=== PATIENT | female | born 1960 | race Hispanic/Latino ===

== ENCOUNTER 2023-10-05 08:58 | Day surgery (SDC) | payer OTHER ==
[2023-10-04 12:23] LABS: BASOPHILS # (AUTO) 0.06 K/uL (0.00-0.20); BASOPHILS % (AUTO) 0.9 % (0.0-5.0); EOSINOPHILS # (AUTO) 0.08 K/uL (0.00-0.70); EOSINOPHILS % (AUTO) 1.2 % (0.0-8.0); HEMATOCRIT 41.8 % (36-48); IMMATURE GRANULOCYTE ABSOLUTE 0.02 K/uL (0-1); LYMPHOCYTES # (AUTO) 1.4 K/uL (1.0-4.8); LYMPHOCYTES % (AUTO) 20.9 % (21.0-51.0); MEAN CORPUSCULAR HEMOGLOBIN 29.9 pg (27.0-33.0); MEAN CORPUSCULAR HGB CONC 35.6 g/dL (32.0-36.0); MEAN CORPUSCULAR VOLUME 83.8 fL (79-99); MONOCYTES # (AUTO) 0.4 K/uL (0.1-1.0); MONOCYTES % (AUTO) 6.4 % (3.0-13.0); NEUTROPHILS # (AUTO) 4.6 K/uL (1.8-7.7); NEUTROPHILS % (AUTO) 70.3 % (40.0-77.0); PLATELET COUNT (AUTO) 324 K/uL (130-400); RED BLOOD CELL COUNT(AUTO) 4.99 MIL/uL (4.00-5.50); RED CELL DISTRIBUTION WIDTH 13.2 % (11.0-15.5); WHITE BLOOD COUNT (AUTO) 6.5 K/uL (4.8-10.8)
[2023-10-04 12:35] LABS: INR <= 0.93 (0.85-1.15); PROTHROMBIN TIME 10.2 SEC (9.6-11.6)
[2023-10-04 12:36] LABS: PARTIAL THROMBOPLASTIN TIME 27.8 SEC (26.3-35.5)
[2023-10-04 12:38] VITALS: BP 109/62; PULSE 67; RESP 16
[2023-10-04 12:39] LABS: CREATININE 0.6 mg/dL (0.5-1.0); POTASSIUM 4.1 mmol/L (3.5-5.1)
[2023-10-04 12:45] LABS: B-TYPE NATRIURETIC PEPTIDE 61 pg/mL (0-100)
[2023-10-04 13:11] LABS: APPEARANCE,URINE CLEAR (CLEAR); BILIRUBIN,URINE NEGATIVE (NEGATIVE); COLOR,URINE LIGHT-YELLOW (YELLOW); GLUCOSE, URINE (UA) >=1000 mg/dL (NEGATIVE); KETONES,URINE NEGATIVE (NEGATIVE); LEUKOCYTE ESTERASE ,URINE 250 Leu/uL (NEGATIVE); NITRATE,URINE NEGATIVE (NEGATIVE); OCCULT BLOOD,URINE NEGATIVE (NEGATIVE); PROTEIN,URINE NEGATIVE (NEGATIVE); UROBILINOGEN,URINE 0.2 mg/dL (0.2-1.0)
[2023-10-04 13:16] LABS: ADD UA MICROSCOPIC YES
[2023-10-04 13:21] LABS: BACTERIA,URINE RARE /HPF (None Seen); MUCUS,URINE RARE LPF (None Seen); SQUAMOUS EPITHELIAL CELL,UR RARE /HPF (0-2)
[~2023-10-05] VITALS: Ht 152.4 cm; Wt 54.6 kg
[2023-10-05] VITALS (8 sets, daily range): BP systolic 106–154; BP diastolic 58–74; PULSE 57–75; RESP 14–18
[~2023-10-05 08:58] MED LIST: AEC81 PO; ATOR40TA69 PO; CLOP75TA32 PO; DOCU100C33 PO; EMPA25TA PO; ESCI-8 PO; FAMO20TA8 PO; FENO48TA10 PO; FEXO-263 PO; ISOS30TA92 PO; LISI2.5T13 PO; METO-409 PO; NITR0.4T50 SL; SEMA2PEN SQ
[2023-10-05] MEDS ORDERED: 0.9%NACL 1000ML 1,000 ML IV ONE (10:36)
[2023-10-05] MEDS ORDERED: LIDOCAINE HCL 400MG/20ML VIAL ONE (10:44)
[2023-10-05] MEDS ORDERED: FENTANYL CITRATE PF 50 MCG/1 ML 2ML VIAL ONE ×2 (10:44→12:57)
[2023-10-05] MEDS ORDERED: NITROGLYCERIN 50MG VIAL ONE (10:45)
[2023-10-05] MEDS ORDERED: IODIXANOL 320 MG/ML 100 ML VIAL ONE ×2 (10:45→11:44)
[2023-10-05] MEDS ORDERED: MIDAZOLAM HCL 1 MG/ML 2ML VIAL ONE ×2 (10:45→13:00)
[2023-10-05] MEDS ORDERED: HEPARIN 10,000 UNIT/10ML (1,000 UNIT/ML) VIAL ONE (12:12)
[2023-10-05] MEDS ORDERED: 0.9%NACL 1000ML 1,000 ML IV SCH (13:30)
[2023-10-05] MEDS ORDERED: PHARMACY COMMUNICATION MISC SCH (13:30)
[2023-10-05] MEDS: ACETAMINOPHEN WITH CODEINE 1 TAB TAB PO PRN (15:15)
== END 2023-10-05 17:20 | disposition home or self-care (01) ==
LOC: DAH 08:58
PROVIDERS: ATTEND Internal Medicine Cardiovascular Disease
DX: I77.1 Stricture of artery (principal); I95.9 Hypotension, unspecified; F41.9 Anxiety disorder, unspecified; F32.A Depression, unspecified; E11.9 Type 2 diabetes mellitus without complications; I10 Essential (primary) hypertension; E78.5 Hyperlipidemia, unspecified; Z88.2 Allergy status to sulfonamides; Z82.49 Family history of ischemic heart disease and other diseases of the circulatory system; Z83.3 Family history of diabetes mellitus; Z87.891 Personal history of nicotine dependence; Z79.82 Long term (current) use of aspirin; Z79.84 Long term (current) use of oral hypoglycemic drugs; Z79.899 Other long term (current) drug therapy
CPT/HCPCS: 80048; 83880; 85025; 85610; 85730; 87088; 81001; 36415; 71045; 93005 ×2; 37236; 36215; 75710; 37252; 82948 ×2; C1894 ×5; C1769 ×2; C1893; C1760; C1753; C1725 ×2; C1876; J3010 ×2; J3490; J7030; J1644 ×2; J2250 ×2; Q9967 ×2; A4215; A4222; A4221; A4663; A4216; A4606; A4223 ×3; 99156; 99157

== ENCOUNTER 2023-11-08 15:55 | Emergency (ER) | payer OTHER ==
[~2023-11-08] VITALS: Ht 152.4 cm; Wt 51.7 kg
[2023-11-08 16:25] LABS: BASOPHILS # (AUTO) 0.04 K/uL (0.00-0.20); BASOPHILS % (AUTO) 0.5 % (0.0-5.0); EOSINOPHILS # (AUTO) 0.09 K/uL (0.00-0.70); EOSINOPHILS % (AUTO) 1.1 % (0.0-8.0); HEMATOCRIT 43.6 % (36-48); IMMATURE GRANULOCYTE ABSOLUTE 0.03 K/uL (0-1); LYMPHOCYTES # (AUTO) 1.6 K/uL (1.0-4.8); LYMPHOCYTES % (AUTO) 19.7 % (21.0-51.0); MEAN CORPUSCULAR HEMOGLOBIN 30.7 pg (27.0-33.0); MEAN CORPUSCULAR HGB CONC 34.4 g/dL (32.0-36.0); MEAN CORPUSCULAR VOLUME 89.3 fL (79-99); MONOCYTES # (AUTO) 0.5 K/uL (0.1-1.0); MONOCYTES % (AUTO) 6.6 % (3.0-13.0); NEUTROPHILS # (AUTO) 5.9 K/uL (1.8-7.7); NEUTROPHILS % (AUTO) 71.7 % (40.0-77.0); PLATELET COUNT (AUTO) 289 K/uL (130-400); RED BLOOD CELL COUNT(AUTO) 4.88 MIL/uL (4.00-5.50); RED CELL DISTRIBUTION WIDTH 13.3 % (11.0-15.5); WHITE BLOOD COUNT (AUTO) 8.2 K/uL (4.8-10.8)
[2023-11-08 16:26] VITALS: O2SAT 98
[2023-11-08 16:33] VITALS: BP 140/74; PULSE 72; RESP 16
[2023-11-08 16:33] LABS: CREATININE 0.7 mg/dL (0.5-1.0); POTASSIUM 3.6 mmol/L (3.5-5.1)
[2023-11-08] MEDS ORDERED: CLIN-141 PO (17:12)
== END 2023-11-08 17:58 | disposition home or self-care (01) ==
LOC: EDH 15:55
DX: N76.0 Acute vaginitis (principal); E11.9 Type 2 diabetes mellitus without complications; E78.00 Pure hypercholesterolemia, unspecified; Z79.02 Long term (current) use of antithrombotics/antiplatelets; Z79.82 Long term (current) use of aspirin; Z79.84 Long term (current) use of oral hypoglycemic drugs; Z79.899 Other long term (current) drug therapy; Z88.2 Allergy status to sulfonamides; Z90.49 Acquired absence of other specified parts of digestive tract; Z90.710 Acquired absence of both cervix and uterus; Z95.1 Presence of aortocoronary bypass graft
CPT/HCPCS: 36415; 56405; 80048; 85025

== ENCOUNTER → 2024-04-13 | Outpatient (CLI) | payer OTHER ==
[~2024-04-13] MED LIST changes: +CLIN-141 PO
[2024-04-13 10:50] LABS: ALBUMIN 3.8 g/dL (3.5-5.0); BILIRUBIN,TOTAL 0.3 mg/dL (0.2-1.0); CREATININE 0.5 mg/dL (0.5-1.0); POTASSIUM 4.1 mmol/L (3.5-5.1)
== END | disposition home or self-care (01) ==
LOC: LAB 09:38
PROVIDERS: ATTEND Student in an Organized Health Care Education/Training Program
DX: I25.10 Atherosclerotic heart disease of native coronary artery without angina pectoris (principal); R06.09 Other forms of dyspnea; Z95.1 Presence of aortocoronary bypass graft
CPT/HCPCS: 36415; 80053

== ENCOUNTER → 2024-04-18 | Outpatient (CLI) | payer OTHER ==
[~2024-04-18] MED LIST changes: +IOHEXOL 350 MG/ML 100ML INFUS..BTL IV ONE
--- NOTE | 2024-04-18 14:50 | HMCIMG ---
CT CARDIAC ANGIO W/CONT. CCTA HISTORY: Dyspnea COMPARISON: None TECHNIQUE: Multiple sequential axial images of the chest were obtained along with the CT angiogram of the chest study. Patient was given 100 cc of Omnipaque through intravenous route. FINDINGS: There is no evidence of pulmonary nodule or parenchymal disease. No pleural effusion or pericardial effusion is seen. There is no evidence of pneumothorax. There are normal size mediastinal and hilar lymph nodes. The heart is not enlarged. Degenerative changes of the thoracolumbar spine are present. IMPRESSION: 1. No evidence of pulmonary nodule or effusion is seen. Please see CT angiogram report of coronary arteries.
--- NOTE | 2024-04-25 08:42 | CARDIOLOGY ---
RAD REPORT: [facility] CT ANGIO RADIOLOGY REPORT: CORONARY CT ANGIOGRAPHY DATE: Apr 25, 2024 QUALITY: Excellent CLINICAL HISTORY AND INDICATION: [ Coronary artery bypass graft patency ] TECHNIQUE: After obtaining a preliminary recreation superintendent image, contrast imaging performed on an [employer] [id number] scanner. A dedicated, limited window, coronary imaging protocol was used, with single breath-hold, retrospective ECG gating, and automated arrhythmia rejection. 100 cc of low osmolar contrast agent: Omnipaque 350 was delivered via a 18-gauge IV catheter in the right antecubital fossa, using a power injector and followed by 60 cc of normal saline bolus as a chaser. Collimated images were reformatted at 0.5 mm intervals, and sent to an offline independent workstation for interpretation, using 3D anatomic reconstructions: Curved multiplanar reconstructions, maximum intensity projections, and multiplan ar imaging. No metoprolol was administered prior to scanning due to low baseline heart rate. 0.8 mg SL nitroglycerin was given. CORONARY ARTERY DESCRIPTIONS: The coronary arteries arise in normal position. Left main coronary artery: Normal caliber vessel that trifurcates into the LAD, ramus and LCx. 50-60% distal left main stenosis. Ramus: Medium caliber. NURSE EMERGENCY proximal ramus. Left anterior descending coronary artery: Normal caliber vessel and gives rise to diagonal and septal branches. Severe proximal LAD stenosis. KADEEM in the LAD just distal to the KRUGER to LAD anastomosis site. Left circumflex coronary artery: Normal caliber, nondominant and gives rise to two OM branches. 80-90% proximal OM1. Right coronary artery: Large, dominant vessel giving rise to the PL and PDA branches. CORONARY ARTERY BYPASS GRAFT DESCRIPTIONS: Patent KRUGER to LAD. Patent SVG to OM. Patent SVG to R PDA. There is a patent drug eluting stent in the mid SVG. Occluded SVG to ramus. No changes since last cardiac catheterization. Yanira Zamarripa MD Cardiovascular Disease [facility] YANIRA ZAMARRIPA MD Apr 25, 2024 08:42
== END | disposition home or self-care (01) ==
LOC: RAH 10:41
PROVIDERS: ATTEND Student in an Organized Health Care Education/Training Program
DX: I25.10 Atherosclerotic heart disease of native coronary artery without angina pectoris (principal); R06.09 Other forms of dyspnea; M47.815 Spondylosis without myelopathy or radiculopathy, thoracolumbar region; Z95.1 Presence of aortocoronary bypass graft
CPT/HCPCS: 75574; Q9967

== ENCOUNTER 2025-03-22 06:26 | Day surgery (SDC) | payer OTHER ==
[2025-03-20 10:41] LABS: IMMATURE GRANULOCYTE ABSOLUTE 0.02 K/uL (0-1); NUCLEATED RED BLOOD CELLS 0.0 % (0.0-0.19); PLATELET COUNT (AUTO) 276 K/uL (130-400); RED BLOOD CELL COUNT(AUTO) 5.24 MIL/uL (4.00-5.50); RED CELL DISTRIBUTION WIDTH 12.6 % (11.0-15.5); WHITE BLOOD COUNT (AUTO) 7.0 K/uL (4.8-10.8)
[2025-03-20 10:53] VITALS: BP 162/81; PULSE 63; RESP 18; TEMP 97.2
[2025-03-20 10:55] LABS: INR <= 0.93 (0.85-1.15)
[2025-03-20 11:05] LABS: CREATININE 0.5 mg/dL (0.5-1.0); GLOMERULAR FILTR. RATE CALC 103.0 mL/min (>90); GLUCOSE,RANDOM 96.0 mg/dL (70-105); SODIUM SERUM 142.0 mmol/L (136-145); UREA NITROGEN, BLOOD 8.0 mg/dL (7-18)
[2025-03-22] VITALS (13 sets, daily range): BP systolic 111–131; BP diastolic 46–69; PULSE 63–72; RESP 15–18; TEMP 97.1–97.7
[~2025-03-22] VITALS: Ht 152.4 cm; Wt 54.1 kg
[~2025-03-22 06:26] MED LIST changes: +ATOR-2 PO; -ATOR40TA69 PO; -CLIN-141 PO; -DOCU100C33 PO; +DOCUSATE PO; -FAMO20TA8 PO; +FENO145T26 PO; -FENO48TA10 PO; -FEXO-263 PO; -IOHEXOL 350 MG/ML 100ML INFUS..BTL IV ONE; +LACT1CAP90 PO; +METO-408 PO; +OMEP20CA12 PO; +SENNA PO
[2025-03-22] MEDS ORDERED: 0.9%NACL 1000ML 1,000 ML IV ONE (07:11)
[2025-03-22] MEDS ORDERED: LIDOCAINE PF 100MG/5ML (2%) SYRINGE 5ML ONE (07:32)
[2025-03-22] MEDS ORDERED: MIDAZOLAM HCL 1 MG/ML 2ML VIAL ONE (07:33)
[2025-03-22] MEDS ORDERED: NEOSTIGMINE METHYLSULFATE 1MG/ML IV ONE (09:39)
[2025-03-22] MEDS ORDERED: GLYCOPYRROLATE 0.2 MG/ML 5 ML VIAL ONE (09:39)
[2025-03-22] MEDS ORDERED: ACET-2079 PO (11:02)
--- NOTE | 2025-03-22 13:33 | OP ---
Operative Note: DATE OF PROCEDURE: 03/22/25 SURGEON: LEONEL GORDON MD CHILI PEPPER GRINDER: Holly Pichardo ANESTHESIA: General ANESTHESIOLOGIST/BLOW PIT OPERATOR: David aYp PREOPERATIVE DIAGNOSIS: Left carpal tunnel syndrome and left cubital tunnel syndrome POSTOPERATIVE DIAGNOSIS: Left carpal tunnel syndrome and left cubital tunnel syndrome PROCEDURE: Left carpal tunnel release and left ulnar nerve transposition ESTIMATED BLOOD LOSS: 0 cc INDICATIONS: 64-year-old female with a left carpal tunnel syndrome and left cubital tunnel syndrome with supporting evidence on EMG/NCS. Patient was failing conservative management. After discussion of the risks and benefits, and alternatives, the patient voluntarily agreed to undergo the aforementioned procedure. DESCRIPTION OF PROCEDURE: Patient was properly identified in the preoperative holding area. Surgical site marking was verified and surgery consent reviewed. The patient was then taken to the operating room and placed in supine position on the OR table. After induction of general anesthesia, preoperative antibiotics were given, all bony prominences were well-padded, and a well padded tourniquet was applied but not inflated at this time. The left upper extremity was then prepped and draped in usual sterile fashion. Surgical timeout was done verifying correct surgery, side, site, and location to be performed. We then began the procedure by exsanguinating the arm using an Esmarch and inflating a tourniquet to 250 mmHg. We made an approximately 2 cm long incision at the ulnar border of the fourth digit, when flexed, on the midpalmar longitudinal crease. Here we came down sharply through the subcutaneous tissue and using a self retaining retractor as well as ragnelles we could visualize the deep tissue. We then identified the transverse carpal ligament and began to come through this a little bit at a time using a 15 blade with small amounts of pressure being applied. The ligament was then released. We directed our attention proximally where we spread above and below the remaining portion of the transverse carpal ligament to break up any adhesions and using a pair of Metzenbaum scissors we slid proximally and transected and the remaining proximal portion of the transverse carpal ligament. Distally, we placed our retractors to help a show the distal extent of the transverse carpal ligament, and we came through this carefully using a 15 blade until we identified the fat surrounding the palmar arch. We used a [place] elevator palpating both the proximal and distal directions to ensure the entire transverse carpal ligament had been released. We then thoroughly irrigated out this wound with normal saline and injected the surrounding tissue with half percent Marcaine plain. We then focused our attention on the cubital tunnel marking out a bony landmarks and drawing out our incision. We then used a 15 blade to make an approximately 6 cm long incision. Here we dissected carefully through the subcutaneous tissue. Proximally we were able to identify the ulnar nerve and follow this as it traveled through the cubital tunnel. Using our 15 blade we released the tissue overlying the ulnar nerve and cubital tunnel. We then proceeded proximally and distally releasing tight structures overlying the nerve. We then tested for any remaining tight areas using a freer elevator. The elbow was then taken through a range of motion where we noted the ulnar nerve beginning to subluxate out of the cubital tunnel. We then elected to transpose the ulnar nerve. Using a 15 blade we elevated a fascial sling from the flexor pronator mass. The ulnar nerve was freed up from the remaining soft tissue deep to it. A Coello drain was passed around the ulnar nerve to carefully manipulate it. We then checked proximally and distally for appropriate release of soft tissue to prevent any pressure on the nerve in its transposed location. We freed any remaining tight tissue. We then used a 2-0 Vicryl to repair the sling loosely around the ulnar nerves holding it out of the cubital tunnel in an anteriorly transposed position. At this point we thoroughly irrigated out the wounds with normal saline and injected the surrounding tissues with half percent Marcaine plain. We then began to repair the tissue here using our 2-0 Vicryl in the subcutaneous tissue and 3-0 subcuticular Monocryl for the skin. Dermabond was applied over this wound at the elbow. Sterile dressing was then applied at the elbow. The hand wound was then closed with 3-0 nylon interrupted simple suture pattern. Soft sterile dressing was applied with Xeroform, 4 x 4's, and Coban. The tourniquet was then deflated. The patient was awakened from anesthesia. There were taken to the recovery room in stable condition. LEONEL GORDON MD Mar 22, 2025 13:33
== END 2025-03-22 12:03 | disposition home or self-care (01) ==
LOC: DAH 06:26
PROVIDERS: ATTEND Student in an Organized Health Care Education/Training Program
DX: G56.03 Carpal tunnel syndrome, bilateral upper limbs (principal); G56.23 Lesion of ulnar nerve, bilateral upper limbs; I10 Essential (primary) hypertension; E11.9 Type 2 diabetes mellitus without complications; E78.5 Hyperlipidemia, unspecified; K21.9 Gastro-esophageal reflux disease without esophagitis; M19.90 Unspecified osteoarthritis, unspecified site; Z90.49 Acquired absence of other specified parts of digestive tract; Z79.82 Long term (current) use of aspirin; Z79.01 Long term (current) use of anticoagulants; Z82.49 Family history of ischemic heart disease and other diseases of the circulatory system; Z83.3 Family history of diabetes mellitus; Z88.2 Allergy status to sulfonamides; Z79.899 Other long term (current) drug therapy; Z98.890 Other specified postprocedural states
CPT/HCPCS: 80048; 85025; 85610; 85730; 36415; 64718; 64721; 82948 ×2; J1885; A4663; J3010; J7030; J0665 ×2; J3490 ×3; J2003; J2250; J2704; J2405; J2270; J2710; J2371; J0690 ×2; A6223; A4649 ×2; A5120; A4215; A4213; A4222; A4221; A4216; A4223 ×2